=== PATIENT | male | born 1990 | race Caucasian/White ===

== ENCOUNTER 2023-10-29 12:15 | Outpatient (OUT) | payer OTHER, SELFPAY ==
--- NOTE | 2023-10-29 | XR_ITS ---
The [address] [address] Patient Name: DEVON DING MRN: [id number] date: 1990 Sex: M Assigned Patient Location: LAB Current Patient Location: LAB Accession/Order Number: [id number] Exam Date: 10/29/2023 12:35 Report Date: 10/31/2023 05:56 At the request of: ELDER WARNER Procedure: XR abdomen min 2V EXAMINATION: XR abdomen min 2V HISTORY: R14.0 abdominal bloating COMPARISON: No relevant comparison available. FINDINGS: BOWEL GAS PATTERN: No abnormal dilation or deviation. CALCIFICATIONS: None significant. OTHER: Negative. No abnormal gaseous collections. XR/XR abdomen min 2V IMPRESSION: 1. Normal bowel gas pattern. No suspicious abdominal findings. Electronically authenticated by: FERCHO BROWN Date: 10/31/2023 05:56
--- NOTE | 2023-10-29 | XR_ITS ---
The [address] [address] Patient Name: DEVON DING MRN: [id number] date: 1990 Sex: M Assigned Patient Location: LAB Current Patient Location: Accession/Order Number: [id number] Exam Date: 10/29/2023 12:35 Report Date: 10/30/2023 08:07 At the request of: ELDER WARNER Procedure: XR knee RT 2V EXAM: XR knee RT 2V HISTORY: m25.569 . Medial and lateral right knee pain when climbing stairs. COMPARISON: None. TECHNIQUE: 2 views right knee. FINDINGS: There is no acute displaced fracture or dislocation of the right knee. There is minimal prepatellar spurring, consistent with early osteoarthritis. There is no right knee effusion. XR/XR knee RT 2V IMPRESSION: 1. No acute displaced fracture or dislocation of the right knee. 2. Minimal right patellar spurring, consistent with early osteoarthritis. If there is clinical suspicion for internal derangement, a followup MRI may be performed for further evaluation. Electronically authenticated by: IFEANYI ARELLANO Date: 10/30/2023 08:07
[2023-10-29 12:37] LABS: Basophils Percent Auto 0.3 % (0.2-2.0); Eosinophils Absolute Auto 0.2 10^3/uL (0.0-0.7); Eosinophils Percent Auto 1.9 % (0.9-7.0); Hemoglobin 14.6 g/dL (14.0-18.0); Immature Granulocytes Abs Auto 0.01 10^3/uL (0.00-0.03); Immature Granulocytes Pct Auto 0.1 % (0.0-0.5); Lymphocytes Percent Auto 34.1 % (20.5-60.0); Mean Corpuscular HGB Conc 32.4 g/dL (29.9-35.2); Mean Corpuscular Hemoglobin 28.2 pg (25.9-34.0); Monocytes Absolute Auto 0.6 10^3/uL (0.3-0.8); Monocytes Percent Auto 7.2 % (1.7-12.0); Neutrophils Absolute Auto 4.9 10^3/uL (1.4-6.5); Neutrophils Percent Auto 56.4 % (43.0-75.0); Platelet Count 240 10^3/uL (150-450); Red Blood Count 5.17 10^6/uL (4.70-6.10); Red Cell Distribution Width 12.3 % (11.0-15.0); White Blood Count 8.7 10^3/uL (4.0-11.0)
[2023-10-29 13:17] LABS: Alanine Aminotransferase 49 U/L (16-63); Albumin Level 3.8 g/dL (3.4-5.0); Alkaline Phosphatase 89 U/L (46-116); Aspartate Amino Transferase 20 U/L (15-37); BUN Creatinine Ratio 16.2; Bilirubin Total 0.4 mg/dL (0.2-1.0); Calcium 9.5 mg/dL (8.5-10.1); Chloride 103 mmol/L (98-107); Chol HDL Ratio 4.3; Cholesterol 187 mg/dL (<=200); Estimated GFR (African America >60 (>=60); Estimated GFR (Non-African Ame >60 (>=60); Globulin 3.8 g/dL; Glucose 98 mg/dL (74-106); HDL Cholesterol 43 mg/dL (40-60); LDL Cholesterol Calculated 131.6 mg/dL; Sodium 140 mmol/L (136-145); Thyroid Stimulating Hormone 1.395 uIU/mL (0.358-3.740); Total Protein 7.6 g/dL (6.4-8.2); Triglycerides 62 mg/dL (<=150); VLDL CHOLESTEROL 12.4 mg/dL
[2023-10-29 13:34] LABS: Bilirubin Urine NEGATIVE (NEGATIVE); Blood Urine NEGATIVE (NEGATIVE); Clarity Urine CLEAR (CLEAR); Color Urine LT. YELLOW (YELLOW); Glucose Urine UA NEGATIVE (NEGATIVE); Ketones Urine NEGATIVE (NEGATIVE); Leukocyte Esterase Urine NEGATIVE (NEGATIVE); Nitrite Urine NEGATIVE (NEGATIVE); Protein Urine NEGATIVE (NEG/TRACE); Specific Gravity Urine 1.015 (1.005-1.025); Urobilinogen Urine 0.2 EU/dL (0.2-1.0); pH Urine 7.5 (5.0-9.0)
[2023-10-29 15:17] LABS: Bacteria Urine TRACE #/HPF (NONE SEEN); Cast Seen? NONE SEEN #/LPF (NONE SEEN); Crystals Seen? None Seen #/HPF (None Seen); Mucus Urine NONE SEEN (NONE SEEN); RBC Urine 0-2 #/HPF (0-2); Squamous Epithelial Cell Urine NONE SEEN #/LPF (NONE/RARE); Urine Culture Indicated NO; WBC Urine 0-2 #/HPF (NONE SEEN)
== END 2023-10-29 12:16 | disposition home or self-care (01) ==
LOC: LAB 12:15
PROVIDERS: PCP Family Medicine; Visit Provider Family Medicine
DX: Z00.00 Encounter for general adult medical examination without abnormal findings (principal); R53.83 Other fatigue; R63.5 Abnormal weight gain; M25.569 Pain in unspecified knee; R14.0 Abdominal distension (gaseous)
CPT/HCPCS: 36415; 73560; 74019; 80053; 80061; 81001; 84443; 85025

== ENCOUNTER 2024-07-04 08:04 | Outpatient (OUT) | payer OTHER, SELFPAY ==
--- NOTE | 2024-07-04 | XR_ITS ---
The [address] [address] Patient Name: DEVON DING MRN: [id number] date: 1990 Sex: M Assigned Patient Location: Current Patient Location: Accession/Order Number: [id number] Exam Date: 07/04/2024 08:05 Report Date: 07/05/2024 12:59 At the request of: LISBETH RAMOS Procedure: XR foot LT min 3V PROCEDURE: XR foot LT min 3V COMPARISON: None. HISTORY: LEFT FOOT PAIN FINDINGS: BONES:No fracture, acute abnormality, or significant arthropathy. SOFT TISSUES:Negative. No visible soft tissue swelling. EFFUSION:None visible. OTHER: Negative. XR/XR foot LT min 3V IMPRESSION: No acute radiographic abnormality Electronically authenticated by: ELDER BLANCAS Date: 07/05/2024 12:59
--- OUTSIDE RECORDS SUMMARY | 2024-07-04 08:07 | XMS_ITS | CCD ---
Author Organization [facility] Care Team Providers Care Entry Level Staff Accountant Name Role Phone DR ELDER WARNER Admitting Unavailable TIMMY, DR FRIEDMAN Attending Unavailable TIMMY, DR FRIEDMAN Consulting Unavailable ELDER LUTZ Consulting Unavailable TIMMY, DR FRIEDMAN Admitting Unavailable TIMMY, DR FRIEDMAN Attending Unavailable Elder Warner Unavailable Medications Completed/Discontinued Medications Medication Drug Class(es) Dates Sig (Normalized) Sig (Original) Farzaneh-D 24 Hour 180-240 MG (2 sources) take 180-240 mg by mouth once daily as needed Farzaneh-D 24 Hour 180-240 MG 1 tablet Orally Once a day prn Not-Taking/PRN Problems Active Problems Problem Classification Problem Date Documented Da te Episodic/Chronic Malaise and fatigue (1 source) Other fatigue Episodic Other gastrointestinal disorders (1 source) Abdominal distension (gaseous) Episodic Other lower respiratory disease (1 source) Snoring Episodic Other nervous system disorders (2 sources) Sensory disorder of smell and/or taste; Translations: [Anosmia] Episodic Other nervous system disorders (1 source) Anosmia Episodic Other non-traumatic joint disorders (1 source) Pain in unspecified knee Episodic Other nutritional; endocrine; and metabolic disorders (2 sources) Body mass index 30+ - obesity; Translations: [Body mass index (BMI) 30.0-30.9, adult] Chronic Other nutritional; endocrine; and metabolic disorders (1 source) Abnormal weight gain Episodic Unclassified (3 sources) COUGH, UNSPECIFIED; Translations: [COUGH, UNSPECIFIED] Onset: 04-06-2022 Viral infection (1 source) Infectious mononucleosis, unspecified without complication Episodic Past or Other Problems Problem Classification Problem Date Documented Da te Episodic/Chronic Unclassified (1 source) COUGH, UNSPECIFIED; Translations: [COUGH, UNSPECIFIED] Onset: 04-03-2022 Viral infection (1 source) COVID-19 Results Test Name Value Interpretation Reference Range Facil ity CBC AUTO DIFFon 04-03-2022 BASO # 0.0 103/ul Normal 0.0-0.1 [facility] Comment on above: Performed By: #### C BC #### [facility] [address] [place] [address] Dr. Jose De Jesus Coughlin Basophils/100 WBC (Bld) 0.2 % Normal 0.2-2.0 [facility] Comment on above: Performed By: #### C BC #### [facility] [address] [place] [address] Dr. Jose De Jesus Coughlin EO # 0.2 103/ul Normal 0.0-0.7 [facility] Comment on above: Performed By: #### C BC #### [facility] [address] [place] [address] Dr. Jose De Jesus Coughlin Eosinophils/100 WBC (Bld) 1.9 % Normal 0.9-7.0 [facility] Comment on above: Performed By: #### C BC #### [facility] [address] [place] [address] Dr. Jose De Jesus Coughlin Erythrocyte distribution width (RBC) [Ratio] 12.0 % Normal 11.0-15.0 [facility] Comment on above: Performed By: #### C BC #### [facility] [address] [place] [address] Dr. Jose De Jesus Coughlin Hematocrit (Bld) [Volume fraction] 43.2 % Normal 42.0-54.0 [facility] Comment on above: Performed By: #### C BC #### [facility] [address] [place] [address] Dr. Jose De Jesus Coughlin Hemoglobin (Bld) [Mass/Vol] 14.5 g/dL Normal 14.0-18.0 [facility] Comment on above: Performed By: #### C BC #### [facility] [address] [place] [address] Dr. Jose De Jesus Coughlin IG # 0.01 10e3/ul Normal 0.00-0.03 [facility] Comment on above: Performed By: #### C BC #### [facility] [address] [place] [address] Dr. Jose De Jesus Coughlin IG % 0.1 % Normal 0.0-0.5 [facility] Comment on above: Performed By: #### C BC #### [facility] [address] [place] [address] Dr. Jose De Jesus Coughlin LYMPH # 3.0 103/ul Normal 1.2-3.8 [facility] Comment on above: Performed By: #### C BC #### [facility] [address] [place] [address] Dr. Jose De Jesus Coughlin Lymphocytes/100 WBC (Bld) 33.5 % Normal 20.5-60.0 [facility] Comment on above: Performed By: #### C BC #### [facility] [address] [place] [address] Dr. Jose De Jesus Coughlin MANUAL DIFF REQ NO Normal [facility] Comment on above: Performed By: #### C BC #### [facility] [address] [place] [address] Dr. Jose De Jesus Coughlin MCH (RBC) [Entitic mass] 28.5 pg Normal 25.9-34.0 [facility] Comment on above: Performed By: #### C BC #### [facility] [address] [place] [address] Dr. Jose De Jesus Coughlin MCHC (RBC) [Mass/Vol] 33.6 g/dL Normal 29.9-35.2 [facility] Comment on above: Performed By: #### C BC #### [facility] [address] [place] [address] Dr. Jose De Jesus Coughlin MCV (RBC) [Entitic vol] 84.9 fL Normal 80.0-94.0 [facility] Comment on above: Performed By: #### C BC #### [facility] [address] [place] [address] Dr. Jose De Jesus Coughlin MONO # 0.7 103/ul Normal 0.3-0.8 [facility] Comment on above: Performed By: #### C BC #### [facility] [address] [place] [address] Dr. Jose De Jesus Coughlin Monocytes/100 WBC (Bld) 7.4 % Normal 1.7-12.0 [facility] Comment on above: Performed By: #### C BC #### [facility] [address] [place] [address] Dr. Jose De Jesus Coughlin NEUT # 5.0 103/ul Normal 1.4-6.5 [facility] Comment on above: Performed By: #### C BC #### [facility] [address] [place] [address] Dr. Jose De Jesus Coughlin Neutrophils/100 WBC (Bld) 56.9 % Normal 43.0-75.0 [facility] Comment on above: Performed By: #### C BC #### [facility] [address] [place] [address] Dr. Jose De Jesus Coughlin Platelet mean volume (Bld) [Entitic vol] 11.4 fL Normal 9.5-13.5 [facility] Comment on above: Performed By: #### C BC #### [facility] [address] [place] [address] Dr. Jose De Jesus Coughlin PLT 237 103/ul Normal 150-450 [facility] Comment on above: Performed By: #### C BC #### [facility] [address] [place] [address] Dr. Jose De Jesus Coughlin RBC 5.09 106/ul Normal 4.70-6.10 [facility] Comment on above: Performed By: #### C BC #### [facility] [address] [place] [address] Dr. Jose De Jesus Coughlin WBC 8.8 103/ul Normal 4.0-11.0 [facility] Comment on above: Performed By: #### C BC #### [facility] [address] [place] [address] Dr. Jose De Jesus Coughlin XR CHEST 2 Von 04-03-2022 XR CHEST 2 V EXAM: Chest x-ray. HISTORY: Cough. COMPARISON: None TECHNIQUE: Total and lateral chest FINDINGS: Heart and vascularity are unremarkable. Lungs are expanded and free of focal infiltrates. No acute bony abnormality is appreciated. IMPRESSION: No acute heart or lung disease identified. Electronically authenticated by: ELDER LUTZ Date: 2022-04-03 13:25 Normal [facility] Vital Signs Date Time Vital Sign Value Performing Clinician Facility 10-28-2023 08:50-0500 Body height 182.88 cm Elder Warner Other [facility] Other 10-28-2023 08:50-0500 Body mass index (BMI) [Ratio] 36.89 kg/m2 Elder Warner Other [facility] Other 10-28-2023 08:50-0500 Body temperature 98.7 [degF] Elder Warner Other [facility] Other 10-28-2023 08:50-0500 Body weight 123.38 kg Elder Warner Other [facility] Other 10-28-2023 08:50-0500 Diastolic blood pressure 86 mm[Hg] Elder Warner Other [facility] Other 10-28-2023 08:50-0500 Respiratory rate 16 /min Elder Warner Other [facility] Other 10-28-2023 08:50-0500 SaO2% (BldA) [Mass fraction] 98 % Elder Warner Other [facility] Other 10-28-2023 08:50-0500 Systolic blood pressure 120 mm[Hg] Elder Warner Other [facility] Other Encounters Encounter Date Encounter Type Care Provider Facility Start: 10-31-2023 End: 10-31-2023 ambulatory Elder Warner Other [facility] Other Start: 10-31-2023 Telephone encounter Elder Warner [facility] Start: 10-28-2023 End: 10-28-2023 ambulatory Elder Warner Other [facility] Other Start: 10-28-2023 Encounter for genera l adult medical examination without abnormal findings Elder Warner [facility] Family [facility] Start: 10-28-2023 Periodic preventive med est patient 18-39 yrs Elder Warner [facility] [place] Start: 04-05-[address] ELDER WARNER Facilit y:[facility] Start: 04-03-2022 End: 04-04-[address] ELDER WARNER Facility:[facility] Payers Date Payer Category Payer Unknown [id number] 1990 Unknown [id number] 1958 Private Health Insurance [id number] Private Health Insurance [id number] Social History Date Type Detail Facility Unknown if ever smoked [facility] Other Sex Assigned At Sex Assigned At Bir [facility] Other Evaluation note 10-28-2023 Note Date & Type Note Facility 10-28-2023 Evaluation note Encounter Date Diagnosis Assessment Notes Oct, Abdominal bloating (ICD-10 - R14.0) In the last couple of weeks he started to notice abdominal bloating after eating. He feels he is having pretty normal bowel movements. He has had trouble having bowel movements in the past. I did explain to him that usually this indicates that there is backed up stool. I did recommend he get an abdominal x-ray done to rule out backed up stool. An order is provided and he can call for results. He denies any right upper quadrant abdominal pain. I did recommend that he have his thyroid level checked due to his fatigue and weight gain. Oct, Wellness examination (ICD-10 - Z00.00) Oct, COVID-19 (ICD-10 - U07.1) He voices that he has had COVID-19 three times. Since the third time which was more recent he has lost his sense of smell. He lost his taste but it has already returned. Oct, Loss of smell (ICD-10 - R43.0) I did advise him that there is no way to predict when he will get his sense of smell back, he will need to give it time. 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 Oct, Fatigue (ICD-10 - R53.83) Since having COVID-19 he has had alot of fatigue. He was waking up tired and would have to drink caffeine to get moving. He was not hearing his alarm and oversleeping. He voices then he flip flopped and was getting tired in the evening by 6-7 PM. If his thyroid is normal then I would like him to consider having a sleep study done to rule out sleep apnea. Oct, Knee pain (ICD-10 - M25.569) bilateral If he has been sitting for a long period of time and goes to stand up both of his knees will be painful. If he goes past 90 degrees he has pain in a specific area of his knee. The other day he stomped on his right leg to get something off his shoe and he could barely put any weight on the right knee because of pain. His right knee does not feel like it will give out on him. If carrying something up stairs or if he is pushing on the right knee has pain that will last a millisecond . I would like to order an x-ray of the right knee to rule out an MCL injury. No injury to the knee(s). The first step out of bed on his knees are stiff, same with his ankles but this only lasts a few steps then he is good. Neither knee will swell but they do get hot at times. He does alot of kneeling and bending at work. He has noticed this more since he has gained weight. If he has visible swelling, or the knee is hot, or the knees lock up or give out on him he needs to let me know right away. Oct, Weight gain (ICD-10 - R63.5) In the last month and a half he has gained 20-25 pounds. He is very active at work. He stands on scales/works on scales so he has been watching his weight go up. Oct, Mononucleosis (ICD-10 - B27.90) He voices that he thought he had mono again but then decided that the way he felt was different. He does not want any Kendrick Torres testing because he knows that all he has to do for this is to sleep/rest. He did have a couple weeks off of work so he rested. Oct, Snoring (ICD-10 - R06.83) He does snore but right now he does not want a sleep study. He would like to be sure there are no abnormalities with his lab work first. He does not wake up gasping for air and his has never noticed that he stops breathing during the night. If needed we may need to discuss a sleep study. [facility] Other History general Narrative - Reported 03-23-2012 Note Date & Type Note Facility 03-23-2012 History general N arrative - Reported Type Medical History - pneumonia Medical History Mononucleosis in [address] Scan of the Abdom en and Pelvis 03-23-12; [facility] Medical History Abdominal Ultrasound 03-23-12; [facility] Medical History shingles Medical History chicken pox Medical History COVID 3 times since 2019 Surgical History wisdom teeth Hospitalization History [place] 2008 [facility] Other Evaluation note Note Date & Type Note Facility Evaluation note No Information [facility] Other Reason for visit Narrative Note Date & Type Note Facility Reason for visit Narrative wellness, dis cuss multiple issues, see treatment plan for further information [facility] Other Summary Purpose Family History No Family History Records Found Advance Directives No Advanced Directives Records Found Additional Source Comments (unrecognized sect ion and content) No Status Records Found INFORMATION SOURCE (unrecogn ized section and content) DATE CREATED AUTHOR 04/07/2022 [facility] FOR RECORDS PERTAINING TO PATIENTS WHO ARE OR HAVE BEEN ENROLLED IN A CHEMICAL DEPENDENCY/SUBSTANCEABUSE PROGRAM, SOME INFORMATION MAY BE OMITTED. This clinical summary was aggregated from multiple sources. Caution should be exercised in using it in the provision of clinical care. This summary normalizes information from multiple sources, and as a consequence, information in this document may materially change the coding, format and clinical context of patient data. In addition, data may be omitted in some cases. CLINICAL DECISIONS SHOULD BE BASED ON THE PRIMARY CLINICAL RECORDS. [facility] [employer] [facility]. provides no warranty or guarantee of the accuracy or completeness of information in this document.
== END 2024-07-04 08:05 | disposition home or self-care (01) ==
LOC: EC 08:04
PROVIDERS: PCP Family Medicine; Visit Provider Podiatrist Foot & Ankle Surgery
DX: M79.672 Pain in left foot (principal)
CPT/HCPCS: 73630

== ENCOUNTER 2024-07-13 07:52 | Outpatient (RCR) | payer OTHER, SELFPAY | END 2024-08-30 09:32 | disposition home or self-care (01) | LOC: PT 07:52 | PROVIDERS: PCP Family Medicine; Visit Provider Podiatrist Foot & Ankle Surgery | DX: M77.52 Other enthesopathy of left foot and ankle (principal) | CPT/HCPCS: 97026; 97035; 97110; 97112; 97140; 97162 ==

== ENCOUNTER 2024-10-03 07:24 | Outpatient (RCR) | payer OTHER, SELFPAY | END 2024-10-09 07:40 | disposition home or self-care (01) | LOC: PT 07:24 | PROVIDERS: PCP Family Medicine; Visit Provider Podiatrist Foot & Ankle Surgery | DX: M77.52 Other enthesopathy of left foot and ankle (principal) | CPT/HCPCS: 97026; 97035; 97110; 97112 ==